=== PATIENT | male | born 1985 | race Caucasian/White ===

== ENCOUNTER → 2021-07-29 | Outpatient (CLI) | payer OTHER ==
--- NOTE | 2021-07-29 11:52 | US ---
EXAMINATION TYPE: US venous doppler duplex LE RT DATE OF EXAM: 07/29/2021 10:56 AM COMPARISON: NONE CLINICAL HISTORY: M79.604 Pain in Right Leg. Pt states swelling right leg SIDE PERFORMED: Right TECHNIQUE: The lower extremity deep venous system is examined utilizing real time linear array sonog beth with graded compression, doppler sonography and color-flow sonography. VESSELS IMAGED: Common Femoral Vein Deep Femoral Vein Greater Saphenous Vein * Femoral Vein Popliteal Vein Small Saphenous Vein * Proximal Calf Veins (* superficial vessels) Right Leg: Negative for DVT Results called to Dr. Nieves at time of exam IMPRESSION: 1. Right right lower extremity ultrasound negative for deep venous thrombosis
== END | disposition home or self-care (01) ==
LOC: RADUSWWP 10:34
PROVIDERS: ATTEND Family Medicine
DX: M79.89 Other specified soft tissue disorders (principal)

== ENCOUNTER → 2024-06-05 | Outpatient (CLI) | payer MEDICAID ==
[2024-06-05 13:12] VITALS: BP 140/90; PULSE 76; RESP 16; TEMP 98.3
--- NOTE | 2024-06-05 17:25 | P.SLEEP ---
History of Present Illness H&P Date: 06/05/24 This is a pleasant 38-year-old male patient who is coming to establish care regarding his obstructive sleep apnea at our sleep center. The patient was seen by Dr. TANYA Ingram and the patient was diagnosed having obstructive sleep apnea approximately 2 years ago. He has previously study was done at [facility] and the patient was told to have mild obstructive sleep apnea. Accordingly, the patient was given a APAP machine pressures of 5/18 cm of water. Over the past 2 years, the patient has been extremely compliant with CPAP therapy. I checked the compliance data from his new generation ResMed 11 CPAP unit and I noticed that over the past year and 65 days, the patient utilized the machine 350 days averaging around 7.5 hours of CPAP use per night. His 95th percentile pressure is at 8.4. His leak is at 13 L/min and his AHI is down to 0.8. He is using a DreamWear nasal mask medium size. He is going to bed 11 PM and waking up 6 AM in the morning. On weekends, he goes to bed around midnight and wakes up 7 AM in the morning. Denies snoring while being on CPAP therapy. He seems to be fully alert and awake and refreshed in the morning while on CPAP therapy. No recent weight gain or weight loss. He sleeps on his side. Occasionally takes naps during the day. No history of substance abuse. Loss of alcoholism. No history of head trauma. No cardiovascular complications. No other major medical problems or comorbidities. Review of Systems Constitutional: Reports daytime sleepiness, Reports fatigue Eyes: denies as per HPI, denies blurred vision, denies bulging eye, denies decreased vision, denies diplopia, denies discharge, denies dry eye, denies irritation, denies itching, denies pain, denies photophobia, denies loss of peripheral vision, denies loss of vision, denies tunnel vision/blind spots Ears: deny: decreased hearing, ear discharge, earache, tinnitus Ears, nose, mouth and throat: Reports as per HPI Breasts: absent: as per HPI, gynecomastia Cardiovascular: Reports as per HPI Respiratory: Reports sleep apnea, Reports snoring Gastrointestinal: Reports as per HPI Genitourinary: Reports as per HPI Musculoskeletal: Reports as per HPI Musculoskeletal: absent: ankle pain, ankle stiffness, ankle swelling, as per HPI, elbow pain, elbow stiffness, elbow swelling, foot pain, foot stiffness, foot swelling, hand pain, hand stiffness, hand swelling, hip pain, hip stiffness, hip swelling, knee pain, knee stiffness, knee swelling, shoulder pain, shoulder stiffness, shoulder swelling, wrist pain, wrist stiffness, wrist swelling Integumentary: Reports as per HPI Neurological: Reports as per HPI Psychiatric: Reports as per HPI, Reports hypersomnia, Reports sleep disturbances Endocrine: Reports as per HPI Hematologic/Lymphatic: Reports as per HPI Allergic/Immunologic: Reports as per HPI Past Medical History Past Medical History: GERD/Reflux, Sleep Apnea/CPAP/BIPAP History of Any Multi-Drug Resistant Organisms: None Reported Additional Past Surgical History / Comment(s): Upper & Lower GI Scope Past Anesthesia/Blood Transfusion Reactions: No Reported Reaction Past Psychological History: No Psychological Hx Reported Smoking Status: Former smoker Past Drug Use History: None Reported - Past Family History Father Additional Family Medical History / Comment(s): snoring Mother Family Medical History: Thyroid Disorder Medications and Allergies Home Medications Medication Instructions Recorded Confirmed Type Omeprazole [PriLOSEC] 10 mg PO DAILY 06/05/24 06/05/24 History Physical Exam Vitals: Vital Signs Temp Pulse Resp BP Pulse Ox 06/05/24 13:11 98.3 F 76 16 140/90 96 Intake and Output 06/05/24 06/05/24 06/05/24 06:59 14:59 22:59 Other: Weight 102.965 kg The patient appeared well nourished and normally developed. Vital signs as documented. Body mass index is 32.5 Head exam is unremarkable. No scleral icterus or corneal arcus noted. Neck is without jugular venous distension, thyromegaly, or carotid bruits. Carotid upstrokes are brisk bilaterally. Mallampati class IV with crowding the posterior pharynx. Lungs are clear to auscultation and percussion. Cardiac exam reveals the PMI to be normally sized and situated. Rhythm is regular. First and second heart sounds normal. No murmurs, rubs or gallops. Abdominal exam reveals normal bowel sounds, no masses, no organomegaly and no aortic enlargement. Extremities are nonedematous and both femoral and pedal pulses are normal. Examination of the skin revealed no evidence of significant rashes, suspicious appearing nevi or other concerning lesions. Neurologically, the patient is awake and alert and the patient does not have any focal neurological deficit. Cranial nerves are essentially intact. Assessment and Plan Plan: Obstructive sleep apnea, mild at baseline. Original sleep study was done at [facility]. The patient is currently being treated with ResMed 11 APAP unit which is set at a pressure of 5/18 cm of water. He is using a DreamWear medium size nasal mask. Hypersomnia, improved with CPAP therapy Snoring recovered with CPAP therapy Obesity with a BMI of 32.5 Plan I checked the patient CPAP unit. I checked the patient's compliancy. Treatment is adequate and the patient is compliant. I am going to modify the APAP pressures and switch him to an APAP mode pressures of 5/12 cm of water. Keep the same mask interface. His 95th percentile pressure is at 8.4. Encourage weight loss Maintain good sleep hygiene measures Refill all of his supplies See me back in a years time in follow-up. Sleep Note - Sleep Data ESS Total: 10 - Sleep Note Sleep Note: Temperature: 98.3 F Pulse Rate: 76 Respiratory Rate: 16 Blood Pressure: 140/90 SpO2: 96 Height: 5 ft 10 in Weight: 102.965 kg BMI: Neck Circumference: 17.2
== END ==
LOC: 3 N SLEEP 13:01
PROVIDERS: ATTEND Internal Medicine Critical Care Medicine
DX: G47.33 Obstructive sleep apnea (adult) (pediatric) (principal); G47.10 Hypersomnia, unspecified; E66.9 Obesity, unspecified; R06.83 Snoring; Z68.32 Body mass index [BMI] 32.0-32.9, adult; Z99.89 Dependence on other enabling machines and devices
CPT/HCPCS: 99211